=== PATIENT | female | born 1970 | race African-American/Black ===

== ENCOUNTER 2017-08-04 10:01 | Emergency (ER) | payer OTHER, SELFPAY ==
[2017-08-04] MEDS ORDERED: HYDROcodone/Acetaminophen 10/325 mg Tablet ONE (10:19)
[2017-08-04] MEDS ORDERED: Ibuprofen 800 MG TAB ONE (10:19)
[2017-08-04 11:20] LABS: #Basophils 0.1 thou/uL (0.0-0.2); #Lymphocytes 1.6 thou/uL (1.20-3.40); #Monocytes 0.4 thou/uL (0.11-0.59); #Neutrophils 2.8 thou/uL (1.40-6.50); %Basophils 1.1 % (0.0-1.0); %Lymphocytes 32.2 % (21.0-51.0); %Monocytes 7.7 % (0.0-10.0); Hemoglobin 13.6 g/dL (12.0-16.0); Mean Corpuscular HGB CONC 34.4 g/dL (32.0-36.0); Mean Corpuscular Hemoglobin 29.1 pg (27.0-31.0); Mean Corpuscular Volume 84.4 fl (81.0-99.0); Mean Platelet Volume 7.6 fL (7.4-10.4); Platelet Count 257 thou/uL (130-400); RBC Distribution Width 11.6 % (11.5-14.5); Red Blood Cell (RBC) Count 4.69 mill/uL (4.20-5.40); White Blood Cell (WBC) Count 4.9 thou/uL (4.8-10.8)
--- NOTE | 2017-08-04 18:05 | RAD ---
RIGHT KNEE FOUR VIEWS: 08/04/17 No fracture or large joint effusion was seen. The joint space is normal in width. A small bony densit y anterior and superior to the patella is noted. Its rounded nature indicates that it is not acute bu t is longstanding. There is a similar tiny rounded apollo just anterior to the upper tibia. IMPRESSION: No acute bony finding. POS: HOME
== END 2017-08-04 11:40 | disposition home or self-care (01) ==
LOC: BURERS 10:01
DX: M25.561 Pain in right knee (principal)
CPT/HCPCS: 36415; 84550; 85025

== ENCOUNTER 2020-01-08 07:14 | Emergency (ER) | payer SELFPAY ==
--- NOTE | 2020-01-08 18:19 | RAD ---
CERVICAL SPINE THREE VIEWS: Date: 01-08-2020 FINDINGS: No fracture was seen, but there is reversal of the normal cervical lordosis. This may be due to muscl e spasm. Very minor disc space narrowing is present at C4-5 and C5-6 with some small anterior osteoph ytes at C4 and below. The soft tissues are normal in thickness and the C1-2 dens distance is normal. IMPRESSION: Degenerative changes of the spine with reversal of lordosis. POS: HOME
== END 2020-01-08 08:19 | disposition home or self-care (01) ==
LOC: BURERS 07:14
DX: M62.838 Other muscle spasm (principal); I10 Essential (primary) hypertension
CPT/HCPCS: 72040

== ENCOUNTER 2023-12-27 09:17 | Outpatient (CLI) | payer OTHER | END 2023-12-27 09:18 | disposition home or self-care (01) | LOC: BURRAD 09:17 | PROVIDERS: ATTEND Nurse Practitioner Family | DX: M79.671 Pain in right foot (principal) ==

== ENCOUNTER 2024-02-04 09:26 | Emergency (ER) | payer OTHER ==
[2024-02-04] MEDS ORDERED: Naproxen 500 MG TAB ONE (09:47)
== END 2024-02-04 10:58 | disposition home or self-care (01) ==
LOC: BURERS 09:26
DX: J30.9 Allergic rhinitis, unspecified (principal); M75.32 Calcific tendinitis of left shoulder; I10 Essential (primary) hypertension; Z90.710 Acquired absence of both cervix and uterus
CPT/HCPCS: 87081; 87428; 87430; 99283